=== PATIENT | female | born 1935 | race African-American/Black ===

== ENCOUNTER 2020-04-15 09:50 | Outpatient (REF) | payer MEDICARE, OTHER, SELFPAY | END 2020-04-15 09:51 | disposition home or self-care (01) | LOC: HO.HMGCLDS 09:50 | PROVIDERS: Visit Provider Internal Medicine | DX: Z20.828 Contact with and (suspected) exposure to other viral communicable diseases (principal) | CPT/HCPCS: C9803; U0003 ==